=== PATIENT | female | born 1935 | race Caucasian/White ===

== ENCOUNTER 2019-02-09 16:15 | Inpatient (IN) ==
[2019-02-09] MEDS ORDERED: NITROGLYCERIN TOP ONE (17:04)
[2019-02-09] MEDS ORDERED: ASPIRIN PO ONE (17:04)
--- NOTE | 2019-02-09 17:39 | PROVIDER DOCUMENTATION ---
This chart was entered by Chikis Manning Scribe, acting as scribe for Fred Hager MD. HPI-Chest Pain - General Chief Complaint: Weakness Stated Complaint: SHOULDER PAIN Time Seen by Provider: 02/09/19 16:55 Source: patient, family Allergies/Adverse Reactions: Patient Allergies Allergy/AdvReac Type Severity Reaction Status Date / Time codeine [Codeine] Allergy Unknown Unknown Verified 12/02/14 00:14 Home Medications: Home Medication List Medication Instructions Recorded Confirmed Last Taken Type Amlodipine [Norvasc] 5 mg PO DAILY 11/03/12 02/09/19 02/09/19 History Hydrochlorothiazide 25 mg PO DAILY 11/03/12 02/09/19 02/09/19 History Omeprazole 20 mg PO BID 11/03/12 02/09/19 02/09/19 History Insulin Glargine [Lantus] 30 unit SUBQ QAM 05/29/14 02/09/19 02/09/19 History Insulin Glulisine [Apidra] 6 unit SUBQ BID 05/29/14 02/09/19 02/09/19 History ATORVAstatin [Lipitor] 40 mg PO DAILY 06/19/14 02/09/19 02/09/19 History Sitagliptin [Januvia] 50 mg PO DAILY 06/19/14 02/09/19 02/09/19 History Calcium Carbonate [Calcium] 1 tab PO BID 02/09/19 02/09/19 02/09/19 History Cinnamon Bark [Cinnamon] 500 mg PO DAILY 02/09/19 02/09/19 02/09/19 History Citalopram [Celexa] 1 tab PO DAILY 02/09/19 02/09/19 02/09/19 History Donepezil HCl [Donepezil HCl Odt] 1 tab PO DAILY 02/09/19 02/09/19 02/09/19 History Memantine HCl [Namenda] 1 tab PO DAILY 02/09/19 02/09/19 02/09/19 History Multivitamin [Multivitamins] 1 cap PO DAILY 02/09/19 02/09/19 02/09/19 History Vitamin D3/Folic Acid [Noxifol-D3 1 tab PO DAILY 02/09/19 02/09/19 02/09/19 History 2,500 Unit-1 mg Tab] - History of Present Illness-CP Nature of Presenting Problem: 83 y/o female presents to ED with L shoulder pain radiating across back to R shoulder, throbbing headache, and diaphoresis onset just prior to arrival. Family of pt reports she had a similar episode these symptoms this morning before [facility]. Pt is alert and oriented. Location: reports: shoulder (L) Chest Pain Radiation: reports: shoulders (R), back Quality of Pain: reports: sharp Severity in ED: moderate, severe Onset/Duration: just prior to arrival Timing: still present Context/Activities at Onset: reports: none Modifying Factors: improves with: nothing Associated Symptoms: reports: back pain, diaphoresis Nitro Today/Relief: 0.4 mg x 1, provided by ED Aspirin Treatment Today: 325 mg x 1, provided by ED Prior Chest Pain/Cardiac Workup: reports: no prior chest pain, no prior cardiac workup Similar Symptoms Previously?: No Recently Seen Here or By Another Healthcare Provider: No Review of Systems - Adult - REVIEW OF SYSTEMS - ADULT Constitutional: denies: chills, fever Eyes: reports: no symptoms reported Ears, Nose, Mouth & Throat: reports: no symptoms reported Cardiovascular: denies: chest pain, palpitations Respiratory: denies: cough, shortness of breath Gastrointestinal: denies: abdominal pain, diarrhea, nausea, vomiting Genitourinary: reports: no symptoms reported Musculoskeletal: reports: joint pain (L shoulder pain radiating across back and into R shoulder). denies: back pain Integumentary: reports: other (diaphoresis). denies: hives Neurological: reports: headache/migraines. denies: dizziness/vertigo, seizure Psychiatric: reports: no symptoms reported Endocrine: reports: no symptoms reported Hematologic/Lymphatic: reports: no symptoms reported Allergic/Immunologic: reports: no symptoms reported All Other Systems: Reviewed and Negative Past History - Adult - PAST MEDICAL HISTORY-ADULT Review of Records: reports: Old Records Reviewed, Nursing Assessment Review, Medications Reviewed Major Childhood Illnesses: reports: denies history Cardiovascular: reports: HTN, hyperlipidemia Respiratory: reports: denies history Gastrointestinal: reports: GERD Obstetrical/Gynecological: reports: denies history Genitourinary: reports: denies history Musculoskeletal: reports: denies history Neurological: reports: dementia, Seizures/Epilepsy Psychiatric: reports: anxiety, depression Endocrine/Immune: reports: anemia, Diabetes Other Conditions: reports: cataract/glaucoma - PRIOR SURGERIES/PROCEDURES Surgical/Procedure History: reports: hysterectomy, orthopedic (extremity) (ORIF left ankle), other (cataract removal; neck arteries) - IMMUNIZATION STATUS Childhood Immunizations: See Nurse Assessment Flu Vaccine: See Nurse Assessment - FAMILY HISTORY Family History: reviewed, not pertinent - SOCIAL HISTORY Smoking: non-smoker Substance Use: none/never Alcohol Use Frequency: never Living Situation: family Physical Exam-General - PHYSICAL EXAM-ADULT Initial Vital Signs Reviewed: Yes - CONSTITUTIONAL General Appearance: appears well, alert, no apparent distress - EYES Eyes: PERRL/EOMI, pink conjunctivae - HEAD, EARS, NOSE, MOUTH & THROAT HENMT: normocephalic/atraumatic, moist mucous membranes, normal ENT inspection - RESPIRATORY Respiratory: chest non-tender, lungs clear, normal breath sounds - CARDIOVASCULAR Cardiovascular: normal peripheral pulses, regular rate, rhythm - MUSCULOSKELETAL Back Exam: normal inspection, no CVA tenderness, no vertebral tenderness Extremity: normal range of motion, non-tender - SKIN Integumentary: normal color, warm/dry - NEUROLOGIC Neurologic: grossly normal - PSYCHIATRIC Psych/Mental Status: normal mood/affect - HEART Score HEART Score: History: Highly Suspicious HEART Score: ECG: Normal HEART Score: Age: > or = 65 Years HEART Score: Risk Factors for Atherosclerotic Disease: > or = 3 Risk Factors or History of Atherosclerotic Disease HEART Score: Troponin: < or = Normal Limit Total HEART Score:: 6 Progress - PLAN OF CARE/RESULTS Progress/Plan/Lab Results: Vital Signs - 8 hr 02/09/19 16:26 02/09/19 16:49 02/09/19 17:00 Temperature 96.9 F L Pulse Rate 83 72 73 Respiratory Rate 20 19 19 Blood Pressure 135/65 148/74 O2 Sat by Pulse Oximetry 96 95 92 L 02/09/19 17:02 02/09/19 17:32 02/09/19 18:00 Temperature Pulse Rate 77 73 70 Respiratory Rate 24 21 17 Blood Pressure 162/87 136/69 O2 Sat by Pulse Oximetry 92 L 94 L 92 L 02/09/19 18:02 Temperature Pulse Rate 77 Respiratory Rate 20 Blood Pressure 165/79 O2 Sat by Pulse Oximetry 92 L Laboratory Results - last 24 hr 02/09/19 02/09/19 02/09/19 16:35 18:00 18:00 WBC 11.38 H RBC 3.94 L Hgb 12.3 Hct 36.7 L MCV 93.1 MCH 31.2 H MCHC 33.5 RDW Std Deviation 12.8 Plt Count 236 MPV 10.9 H Immature Gran % (Auto) 0.3 Neut % (Auto) 57.8 Lymph % (Auto) 28.7 [place] % (Auto) 9.1 Eos % (Auto) 3.5 Baso % (Auto) 0.6 Immature Gran # (Auto) 0.03 Neut # (Auto) 6.58 H Lymph # (Auto) 3.27 [place] # (Auto) 1.03 H Eos # (Auto) 0.40 Baso # (Auto) 0.07 PT INR PTT (Actin FS) Sodium 141 Potassium 4.4 Chloride 101 Carbon Dioxide 27 Anion Gap 13 BUN 32 H Creatinine 1.4 H Estimated GFR/1.73 m2 36 BUN/Creatinine Ratio 23 Glucose 135 H POC Glucose 173 H Calculated Osmolality 290 Calcium 8.5 L Total Bilirubin 0.23 AST 21 ALT 21 Alkaline Phosphatase 90 Creatine Kinase 110 Troponin T Szt-V-Nysyoeiaypl Pept Total Protein 6.6 Albumin 4.1 Globulin 2.5 Albumin/Globulin Ratio 1.6 02/09/19 02/09/19 02/09/19 18:00 18:00 18:00 WBC RBC Hgb Hct MCV MCH MCHC RDW Std Deviation Plt Count MPV Immature Gran % (Auto) Neut % (Auto) Lymph % (Auto) [place] % (Auto) Eos % (Auto) Baso % (Auto) Immature Gran # (Auto) Neut # (Auto) Lymph # (Auto) [place] # (Auto) Eos # (Auto) Baso # (Auto) PT 13.4 INR 1.01 PTT (Actin FS) 22.6 Sodium Potassium Chloride Carbon Dioxide Anion Gap BUN Creatinine Estimated GFR/1.73 m2 BUN/Creatinine Ratio Glucose POC Glucose Calculated Osmolality Calcium Total Bilirubin AST ALT Alkaline Phosphatase Creatine Kinase Troponin T < 0.010 Gug-F-Xxcjzwcrzyk Pept 160 Total Protein Albumin Globulin Albumin/Globulin Ratio Orders Category Date Time Status Cardiac Monitoring DIRECTED Care 02/09/19 17:06 Active Oxygen Therapy- ED Nursing DIRECTED Care 02/09/19 17:06 Active Saline Loc NOW Care 02/09/19 17:06 Active CHEST-1 VIEW [RAD] Stat Exams 02/09/19 17:05 Completed CBC WITH ELECTRONIC DIFF [HEME] Stat Lab 02/09/19 18:00 Completed CK PROFILE [SP CHEM] Stat Lab 02/09/19 18:00 Completed COMPREHENSIVE METABOLIC PANEL [CHEM] Stat Lab 02/09/19 18:00 Completed PRO B-NATRIURETIC PEPTIDE Stat Lab 02/09/19 18:00 Completed PROTIME WITH INR [COAG] Stat Lab 02/09/19 18:00 Completed PTT [COAG] Stat Lab 02/09/19 18:00 Completed TROPONIN T Stat Lab 02/09/19 18:00 Completed Aspirin Med 02/09/19 17:04 Discontinued 324 mg PO NOW ONE Nitroglycerin Med 02/09/19 17:04 Discontinued 0.5 inch TOP NOW ONE CP/SOB/Palp >45 yrs of Age Stat Oth 02/09/19 17:06 Ordered EKG [EKG] Stat Ther 02/09/19 16:37 Draft Result Diagrams: 02/09/19 18:00 02/09/19 18:00 - REASSESSMENT Reassessment #1 Time Reassessed: 19:06 Status: unchanged (all studies normal: will admit for suspected new onset angina) - EKG 1 Time of EKG reading by physician:: 16:44 EKG Read and Signed by:: Fred Hager EKG Interpretation (*Must complete 3 of following elements*): Abnormal Rate: 77 Rhythm: NSR [place]: normal QRS: RBB GA Interval: normal ST Wave: normal Prior EKG Comparison: unchanged from prior (2013) - XRAY 1 XRAY Study: Chest Impression: See EMR Report - CONSULTS/PCP/HOSPITALIST Notification #1 *Consult/PCP/Hospitalist*: Hospitalist Time Discussed: 19:07 Consult Disposition: F/U in office, Admit Departure - Departure Date of Disposition Decision: 02/09/19 Time of Disposition Decision: 19:07 DIAGNOSIS: Unstable angina Disposition: ADMITTED INPATIENT 09 Certified Medical Emergency: Emergent Condition: Stable Referrals and Follow-Ups: Adan Torres DO [Primary Care Provider] - - Critical Care Note This patient required my direct & personal management of CC.: No Attestation - Physician/ MANDO Attestation Patient care was provided by Advanced Practice Provider:: No The physician spent face to face time with patient:: Yes Advanced Practice Provider documentation review:: Supervising physician onsite and consulted in the evaluation and care of this patient. The physician did have a face to face encounter with the patient. This chart was documented by the indicated scribe, (Chikis Manning Scribe) and accurately reflects the services I performed and decisions made by me, Fred Hager MD, as attested by the provider's signature.
--- NOTE | 2019-02-09 17:42 | Diag Imaging Result Doc PS360 ---
EXAM: CHEST-1 VIEW HISTORY: unstable angina TECHNIQUE: Chest single view COMPARISON: None 07/28/2013 FINDINGS: The lungs are well expanded. The heart is not enlarged. The vessels are not distended. There are no infiltrates. No effusion identified. Left granuloma. IMPRESSION: Negative exam. Electronically signed by Fernando Bueno 02/09/2019 5:39 PM
[2019-02-09 18:15] LABS: BASO# 0.07 X1000 (0.0-0.2); BASO% 0.6 % (0.0-0.8); EOS% 3.5 % (0.0-10.0); HEMATOCRIT 36.7 % (37.0-47.0); HEMOGLOBIN 12.3 g/dL (12.0-16.0); IMM GRAN# 0.03 X1000 (0.0-0.04); IMM GRAN% 0.3 % (0.0-0.5); LYMPH# 3.27 X1000 (1.2-3.4); LYMPH% 28.7 % (20.5-51.1); MCH 31.2 PG (27-31); MCHC 33.5 g/dL (33-37); MCV 93.1 FL (81-99); MONO# 1.03 X1000 (0.11-0.59); MONO% 9.1 % (1.7-9.3); MPV 10.9 FL (7.4-10.4); NEUT# 6.58 X1000 (1.4-6.5); NEUT% 57.8 % (42.2-75.2); PLT 236 X1000 (130-400); RBC 3.94 XMIL (4.2-5.4); RDW 12.8 % (11.5-14.5); WBC 11.38 X1000 (4.8-10.8)
[2019-02-09 18:25] LABS: INR 1.01; PROTIME 13.4 Seconds (11.0-16.0)
[2019-02-09 18:26] LABS: PTT 22.6 Seconds (22.3-41.8)
--- NOTE | 2019-02-09 18:30 | EKG Report ---
Test Performed on : 02/09/2019 4:37:09 PM Test Reason : shoulder pain Blood Pressure : / mmHG Vent. Rate : 077 BPM Atrial Rate : 077 BPM P-R Int : 138 ms QRS Dur : 116 ms QT Int : 434 ms P-R-T Axes : 060 090 012 degrees QTc Int : 491 ms Normal sinus rhythm. Right bundle branch block Abnormal ECG When compared with ECG of 29-MAY-2014 19:03, No significant change was found Unconfirmed Result
[2019-02-09 18:43] LABS: ALB/GLOB RATIO 1.6; ALBUMIN 4.1 g/dL (3.5-5.0); CALCIUM 8.5 mg/dL (8.8-10.2); CREATININE 1.4 mg/dL (0.5-0.9); POTASSIUM 4.4 mmol/L (3.5-5.1); TOTAL BILIRUBIN 0.23 mg/dL (0.20-1.00); TOTAL PROTEIN 6.6 g/dL (6.3-8.3)
--- NOTE | 2019-02-09 22:24 | HISTORY AND PHYSICAL ---
CHIEF COMPLAINT: Chest pain. HISTORY OF PRESENT ILLNESS: Ms. Wesley is a very pleasant 83-year-old female who started having right shoulder pain and broke out into a cold sweat, also radiated to her left shoulder and across her back. She had a throbbing headache. She had similar symptoms this morning before [facility] and so she came into the emergency room. EKG showed normal sinus rhythm with a right bundle branch block appeared to be unchanged from a previous. Initial cardiac enzymes were negative. She will be admitted for further evaluation and treatment. PAST MEDICAL HISTORY: Hypertension, diabetes mellitus type 2, hyperlipidemia and dementia. PREVIOUS SURGICAL HISTORY: Hysterectomy, bilateral carotid endarterectomy and cataract surgery. SOCIAL HISTORY: Lives home alone. No tobacco, alcohol or illicit drugs. FAMILY HISTORY: First-degree relatives with diabetes mellitus type 2. ALLERGIES: Codeine causing a headache. HOME MEDICATIONS: Omeprazole 20 mg p.o. b.i.d., hydrochlorothiazide 25 mg p.o. daily, amlodipine 5 mg p.o. daily, Lantus 30 units subcutaneous q.a.m., Apidra 6 units subcutaneous b.i.d., atorvastatin 40 mg p.o. daily, Januvia 15 mg p.o. daily, calcium carbonate 600 mg p.o. b.i.d., cinnamon 500 mg p.o. daily, Celexa 40 mg p.o. daily, Namenda 10 mg p.o. daily, multivitamin p.o. daily, donepezil 10 mg p.o. daily, vitamin D3 with folic acid 1 p.o. daily. REVIEW OF SYSTEMS: Fourteen-point review of systems conducted with the patient. Pertinent positives listed above in HPI. All other systems reviewed and found to be negative. PHYSICAL EXAMINATION: VITAL SIGNS: Temperature 96.9, pulse 77, respirations 20, blood pressure 165/79, oxygen saturation 94% on room air. GENERAL: Very pleasant 83-year-old female oriented to person, place and situation, disoriented to time, answers most questions appropriately. Family at bedside very attentive. HEENT: Head is atraumatic, normocephalic. Pupils equal, round, reactive to light. Extraocular eye movement intact. Sclerae are anicteric. Conjunctiva is pink. Oral mucosa is moist. NECK: Supple. No JVD. No thyromegaly. Trachea is midline. No cervical lymphadenopathy. CARDIAC: S1, S2 appreciated. No murmurs, gallops, rubs. LUNGS: Clear to auscultation bilaterally. No rhonchi, wheezes, rales. Symmetric rise and fall with respirations. ABDOMEN: Protuberant, soft, nondistended, nontender. Bowel sounds present all 4 quadrants, normoactive. No pulsatile mass. No organomegaly. EXTREMITIES: No clubbing, cyanosis or edema. One-plus pedal pulses bilaterally. GENITOURINARY: No bladder distention. Patient voids. Otherwise deferred. NEUROLOGIC: Alert and oriented times 3. No focal motor deficits. Otherwise nonfocal examination. DIAGNOSTIC DATA: Chest x-ray: No cardiomegaly, infiltrates or effusion. LABORATORY DATA: WBC 11.38. Hemoglobin 12.3. Hematocrit 36.7. Platelet count 236. Coagulation studies within normal limits. Sodium 141. Potassium 4.4. Chloride 101. Carbon dioxide 27. BUN 32. Creatinine 1.4. Glucose 135. Troponin and CK negative times 1 set. ASSESSMENT AND PLAN: 1. Chest pain, rule out acute myocardial infarction. We will consult Cardiology. Also schedule stress test tomorrow morning. Check direct lipid profile. Trend cardiac enzymes. Nitroglycerin 0.5 mg transdermally every 6 hours. 2. Chronic kidney disease stage 3. This appears to be baseline. Continue to monitor. 3. Hypertension. Continue home medication. 4. Hyperlipidemia. Continue statin. As noted, recheck direct lipid profile. 5. Diabetes mellitus type 2 with hyperglycemia. Check hemoglobin A1c. Sliding scale insulin and fingerstick blood sugars. Further recommendations per patient clinical course. Dictated by STEPHEN Varela for Horacio Paulino MD I have performed a face to face diagnostic evaluation. Labs/ xrays- reviewed. Exam- chest- clear, CV- regular. A/P- Chest Pain- Admit, cardiac work up, NTG , ASA. Dr. Paulino cc: STEPHEN Varela MD [facility]
[2019-02-09] MEDS ORDERED: TYLENOL PO PRN (22:47)
[2019-02-09] MEDS ORDERED: ZOFRAN IV PRN (22:47)
[2019-02-09] MEDS ORDERED: LOVENOX SUBQ SCH (22:47)
[2019-02-09] MEDS: CALTRATE 600 PO SCH (22:55)
[2019-02-09] MEDS: PRILOSEC PO SCH (22:55)
[2019-02-09 23:20] LABS: URINE SOURCE CLEAN CATCH
[2019-02-09 23:23] LABS: BILIRUBIN URINE NEGATIVE (NEGATIVE); BLOOD URINE NEGATIVE (NEGATIVE); COLOR YELLOW; GLUCOSE URINE 150 mg/dL (NEGATIVE); KETONE URINE NEGATIVE (NEGATIVE); LEUKOCYTES URINE NEGATIVE (NEGATIVE); NITRITE URINE NEGATIVE (NEGATIVE); PROTEIN URINE NEGATIVE (NEGATIVE); SP GRAVITY URINE 1.012; TURBIDITY URINE CLEAR (CLEAR); UROBILINOGEN URINE NORMAL (NORMAL)
[2019-02-09 23:25] LABS: UR EPITHELIAL CELLS <10 /HPF (<10); URINE BACTERIA NEGATIVE /HPF; URINE RBC <10 /HPF (<10); URINE WBC <10 /HPF (<10)
[2019-02-09] MEDS: NITROGLYCERIN TOP SCH (23:54)
[2019-02-10] MEDS: NITROGLYCERIN TOP SCH ×2 (05:01→13:49)
[2019-02-10] MEDS ORDERED: D50W SYRINGE IV ONE ×2 (05:11→05:15)
[2019-02-10 07:35] LABS: BASO# 0.05 X1000 (0.0-0.2); BASO% 0.5 % (0.0-0.8); EOS# 0.25 X1000 (0.0-0.7); EOS% 2.7 % (0.0-10.0); HEMATOCRIT 35.6 % (37.0-47.0); HEMOGLOBIN 11.5 g/dL (12.0-16.0); IMM GRAN# 0.02 X1000 (0.0-0.04); IMM GRAN% 0.2 % (0.0-0.5); LYMPH% 20.6 % (20.5-51.1); MCH 30.3 PG (27-31); MCHC 32.3 g/dL (33-37); MCV 93.9 FL (81-99); MONO# 0.94 X1000 (0.11-0.59); MONO% 10.2 % (1.7-9.3); NEUT# 6.07 X1000 (1.4-6.5); NEUT% 65.8 % (42.2-75.2); PLT 207 X1000 (130-400); RBC 3.79 XMIL (4.2-5.4); RDW 12.8 % (11.5-14.5); WBC 9.23 X1000 (4.8-10.8)
[2019-02-10 07:39] LABS: HEMOGLOBIN A1C 8.6 % (4.8-6.0)
--- NOTE | 2019-02-10 07:50 | EKG Report ---
Test Performed on : 02/10/2019 07:21:30 AM Test Reason : CP Blood Pressure : / mmHG Vent. Rate : 088 BPM Atrial Rate : 088 BPM P-R Int : 160 ms QRS Dur : 130 ms QT Int : 440 ms P-R-T Axes : 067 102 023 degrees QTc Int : 532 ms Sinus rhythm. with occasional premature ventricular complexes. Right bundle branch block Abnormal ECG When compared with ECG of 09-FEB-2019 16:37, (Unconfirmed) premature ventricular complexes. are now present Confirmed by Bolivar Lepe MD ([id number]) on 02/10/2019 4:11:28 PM
[2019-02-10] MEDS: CALTRATE 600 PO SCH (08:15)
[2019-02-10] MEDS: PRILOSEC PO SCH (08:15)
[2019-02-10 08:53] LABS: CALCIUM 8.8 mg/dL (8.8-10.2); CREATININE 1.3 mg/dL (0.5-0.9); POTASSIUM 3.6 mmol/L (3.5-5.1)
[2019-02-10] MEDS ORDERED: ARICEPT PO SCH (09:00)
[2019-02-10] MEDS ORDERED: PATIENT'S OWN MED PO SCH (09:00)
[2019-02-10] MEDS ORDERED: LIPITOR PO SCH (09:00)
[2019-02-10] MEDS ORDERED: ASPIRIN PO SCH (09:00)
[2019-02-10] MEDS ORDERED: HYDROCHLOROTHIAZIDE PO SCH (09:00)
[2019-02-10] MEDS ORDERED: NORVASC PO SCH (09:00)
[2019-02-10] MEDS ORDERED: CELEXA PO SCH (09:00)
[2019-02-10] MEDS ORDERED: THERA M PLUS PO SCH (09:00)
[2019-02-10] MEDS ORDERED: NAMENDA PO SCH (09:00)
[2019-02-10] MEDS ORDERED: LEXISCAN ONE (11:41)
--- NOTE | 2019-02-10 12:46 | ECHO REPORT ---
ORDER DATE: 02/10/2019 INTERPRETING PHYSICIAN: Dr. Jb Siddiqui. ECHOCARDIOGRAPHIC MEASUREMENTS: 1. Interventricular septum: 0.9 cm. 2. Left ventricular posterior wall: 0.9 cm. 3. Diastolic diameter: 4.0 cm. 4. Left atrium: 3.5 cm. 5. Aorta: 2.9 cm. SUMMARY OF THE 2-DIMENSIONAL IMAGIN. Normal left ventricular cavity size. Estimated ejection fraction of 65%. There is diastolic dysfunction. 2. Aortic valve leaflets are trileaflet, sclerosed, opening normally. 3. Mitral valve leaflets mildly thickened, opening normally. There is moderate mitral annular calcification. 4. Tricuspid valve was normal. 5. Pulmonic valve was normal. 6. There is no aortic stenosis or regurgitation. 7. There is mild mitral regurgitation. 8. Mild tricuspid regurgitation. Peak velocity across the tricuspid valve was 2.5 m/sec. 9. Pulmonary artery systolic pressure of 35-39 mmHg. 10. There is mild left atrial enlargement. 11. There is no pericardial effusion or obvious intracardiac mass or thrombus seen. cc: MD Vonnie Guajardo PA
--- NOTE | 2019-02-10 14:10 | Diag Imaging Result Document ---
PROCEDURE NAME: MYOCARDIAL PERF SCAN, STR/REST - 02/10/2019 LEXISCAN CARDIOLITE STRESS: Lexiscan was infused per standard protocol. Baseline electrocardiogram revealed normal sinus rhythm, right bundle branch block. Stress electrocardiogram was negative for ischemia. There was no chest pain. 10.9 mCi of Cardiolite was injected for the rest phase. 30.9 mCi of Cardiolite was injected for the stress phase. Images revealed chest wall and diaphragmatic attenuation. Normal left ventricular cavity size. Normal myocardial perfusion. Left ventricular ejection fraction 82%. CONCLUSIONS: 1. No chest pain. 2. Negative Lexiscan stress electrocardiogram. 3. Normal myocardial perfusion. 4. Left ventricular ejection fraction by gated SPECT was 82%. cc: MD Haile Guajardo CRNP
[2019-02-10 15:34] VITALS: BP 153/65
--- NOTE | 2019-02-10 17:17 | CARDIOLOGY CONSULTATION ---
DATE: 02/10/2019 CONSULTATION REQUESTED BY: The hospitalist service. REASON FOR STUDY: Shakiness, irregular heartbeat, atypical chest discomfort. HISTORY: Mrs. Wesley is an 83-year-old female, who presented to the emergency room because of 2 episodes of uncontrollable shakiness. The first one was witnessed by the daughter. It happened just before going to [employer] at about 9 o'clock in the morning. The daughter found her at home, standing up in the bedroom next to the bed, and she was just shaking and complaining of pain across the shoulders. 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 This uncontrollable shakiness went on for 20 minutes. At that time, the daughter noted that she had missed her dosage of insulin. At any rate, after taking the insulin, she went to [employer]. Services ended at about 12 noon, and they went to eat to a restaurant that she likes very much. After eating lunch, they made it back to the house at about 2:30 or so in the afternoon. The patient went and laid down in the reclining chair, and at about 4:30 or 5 o'clock, she called her daughter because she was experiencing another episode of discomfort across the shoulder blades, both shoulders. When the daughter made it home, they found her shaking again uncontrollably. Because of that, they took her to the emergency room. In the ER, they did all the initial evaluation, including several troponin levels, a total of 3, one at 6 p.m., the next one at 11 p.m., and the next one at 6:30 a.m. today, all of them negative. ProBNP level is normal at 160 pg/mL. BUN 32, creatinine 1.4. Hemoglobin 12.3. Chest x-ray showed no abnormalities. Electrocardiogram initially showed sinus rhythm, a right bundle branch block, rightward axis. Subsequent EKG done at 7:21 this morning shows sinus rhythm and what appears to be ventricular bigeminy. The patient was taken for a stress test today, and while she was waiting to be scanned following the stress test which was done using Lexiscan, she had another brief episode of the same; this time, it was brief. The patient has a history of dementia, and therefore she cannot really recall a whole lot of events. Daughter is with her, and she helps recalling. PAST MEDICAL HISTORY: Positive for hypertension, type [address] Adan Torres has been following her. She has acid reflux, anemia, anxiety, depression, seizure disorder, and history of gastric ulcers. SURGICAL HISTORY: She had hysterectomy. She has had bilateral carotid artery endarterectomy. She has had cataract extraction. SOCIAL HISTORY: She is , retired, lives at home. Not a smoker. Not a drinker. FAMILY HISTORY: Positive for diabetes mellitus in several members of the family. HOME MEDICATIONS: Listed at the time of this admission include amlodipine 5 mg daily, atorvastatin 40 daily, calcium carbonate 1 tablet twice a day, Celexa 1 tablet daily, donepezil 1 tablet daily, hydrochlorothiazide 25 daily, insulin Lantus 30 units in the morning and Apidra 6 units twice a day, Namenda 1 tablet daily, omeprazole 20 mg twice a day, and Januvia 50 mg daily. ALLERGIES: Codeine. REVIEW OF SYSTEMS: She has been somewhat limited lately. She has chronic pains in the shoulder area. She has arthritis with limitation to elevation of the arms. No other significant positives. No prior history of heart disease. PHYSICAL EXAMINATION: Vital signs: Blood pressure 150/64, temperature 97.4 degrees, respirations 16, pulse 76. General: She is awake, alert, in no distress. Head and Neck: She has a resting tremor of the head and neck. No jugular venous distention. No cervical bruits. Chest: Clear to auscultation and percussion. Heart: Sounds are regular and rhythmic. No murmurs noted. Abdomen: Soft, nontender. Extremities: Show good pulses. No peripheral edema. Neurological: Follows commands. Moves 4 extremities. IMPRESSION: 1. Patient who presents with really atypical discomfort in the shoulder area and shoulder blades. No true chest pain. 2. Uncontrollable shakiness. This could be a side effect of medication or perhaps a neuropsychological issue. 3. History of hypertension. 4. History of diabetes mellitus. 5. History of acid reflux. 6. Dementia? RECOMMENDATION: At this time, we have requested an echocardiogram, and a stress test has been ordered. We will review the results of these studies, and we will give further advice. Of note, her lipid panel is actually quite acceptable. HDL is 56, LDL is 86, total cholesterol 147, triglycerides 149. We will see what these tests show, and we will furnish additional advice. cc: Virgilio Livingston MD [id number]
[2019-02-11] MEDS ORDERED: ASPIRIN PO SCH (09:00)
--- NOTE | 2019-02-11 09:47 | DISCHARGE SUMMARY ---
ADMISSION DATE: 02/09/2019 DISCHARGE DATE: 02/10/2019 DISPOSITION: Home. FOLLOW-UP: 1. Dr. Torres. 2. Dr. Livingston. 3. Dr. Duong. CONSULTATION DURING THIS ADMISSION: Cardiology was consulted. Patient was seen by Dr. Livingston. INVASIVE PROCEDURES DONE DURING ADMISSION: None. IMAGING STUDIES OF SIGNIFICANCE: 1. Chest x-ray was negative. 2. A myocardial perfusion scan was normal. No defects. 3. Echocardiogram shows ejection fraction of 65, with normal left ventricle size. ADMISSION DIAGNOSES: 1. Chest pain. 2. CKD stage 3. 3. Hypertension. 4. Dyslipidemia. 5. Diabetes mellitus. DIAGNOSES AT TIME OF DISCHARGE: 1. Atypical chest pain with normal stress test, unremarkable EKG and normal troponin's. This is presumed to be noncardiac. 2. Severe bilateral shoulder pain secondary to osteoarthritis with almost a frozen right shoulder. The patient has been started on pain medication, and she is advised to follow up with orthopedics for further outpatient evaluation. 3. Hypertension controlled. 4. Diabetes mellitus on insulin. 5. Baseline Alzheimer's dementia. Patient is on memantine and donepezil. DISCHARGE MEDICATIONS: 1. Omeprazole 20 mg b.i.d. 2. Hydrochlorothiazide 25 mg p.o. daily. 3. Amlodipine 5 mg p.o. daily. 4. Insulin 30 units subcutaneous in the morning. 5. Apidra 6 units b.i.d. 6. Atorvastatin 40 mg p.o. daily. 7. Januvia 50 mg p.o. daily. 8. Citalopram 40 mg p.o. daily. 9. Namenda 10 mg p.o. daily. 10. Multivitamins. 11. Donepezil 10 mg p.o. daily. 12. Aspirin 81 mg p.o. daily. 13. Meloxicam 7.5 p.o. daily. 14. Acetaminophen 650 p.o. q.6h p.r.n. 15. Omeprazole 20 mg b.i.d. PRESENTING COMPLAINT: Chest pain. HISTORY OF PRESENTING COMPLAINT: The patient is an 83-year-old female who presented to the emergency department because of chest pain associated with bilateral shoulder pain associated with some cold sweat. Upon presenting, the patient was evaluated. EKG was unremarkable for any acute changes, and initial troponin was negative. She was admitted for cardiac risk stratification. HOSPITAL COURSE: The patient was admitted to the medical floor and was under tele monitoring. Her other comorbidities were all addressed including her blood pressure, diabetes and dyslipidemia. During the hospital course, troponin's were trended about 4 times, and they were all normal. EKGs were also done which did not show any changes. An echocardiogram as well as a stress test was done, and all came back negative. The patient was also seen by Cardiology. Today, she refers to be feeling a whole lot better. Her shoulder pain is better controlled. We think she is in stable condition for discharge. She is going to follow up with her primary care doctor. The patient will do the renal function test within about a week to follow up since she is going to be on a new pain medication with the potential of renal complications. All the discharge instructions have been discussed with her, and she voiced understanding. TIME SPENT: Time spent for discharge is 36 minutes. cc: DO Dr. Ad Bobby MD Raphael K. Quansah, MD
== END 2019-02-10 17:50 | disposition home or self-care (01) | DRG 313 ==
LOC: ED 16:15 → SUATTDRO 21:47 → 3N 21:47
PROVIDERS: ATTEND Internal Medicine